=== PATIENT | female | born 1980 | race Caucasian/White ===

== ENCOUNTER → 2016-10-27 | Outpatient (CLI) | payer BC, OTHER | LOC: MW.CHOBGYN 12:43 | PROVIDERS: ATTEND Nurse Practitioner Women's Health | DX: Z00.5 Encounter for examination of potential donor of organ and tissue (principal) | CPT/HCPCS: 36415; 81001; 82043; 82565; 82570; 82947; 85014; 85018; 86900; 86901 ==